=== PATIENT | male | born 1945 | race Hispanic/Latino ===

== ENCOUNTER 2019-01-14 02:05 | Emergency (ER) | payer MEDICARE ==
[2019-01-14] MEDS ORDERED: TETANUS/DIPHTHERIA TOXOID [ADULT] 0.5 ML VIAL IM ONE (02:33)
== END 2019-01-14 03:39 | disposition home or self-care (01) ==
LOC: EDH 02:05
DX: S61.251A Open bite of left index finger without damage to nail, initial encounter (principal); W53.11XA Bitten by rat, initial encounter; Y93.89 Activity, other specified; Y92.89 Other specified places as the place of occurrence of the external cause; Y99.8 Other external cause status
CPT/HCPCS: 73140; 90471; 90714

== ENCOUNTER 2020-03-14 10:30 | Observation (INO) | payer MEDICARE ==
[~2020-03-14] VITALS: Ht 165.1 cm; Wt 85.3 kg
[2020-03-14] MEDS ORDERED: ONDANSETRON HCL 4 MG/2 ML VIAL IVP PRN (15:30)
[2020-03-14] MEDS ORDERED: POTASSIUM CHLORIDE 20 MEQ ERTAB PO PRN (15:30)
[2020-03-14] MEDS ORDERED: LIDOCAINE HCL-MPF 1% 2ML VIAL IV PRN (15:30)
[2020-03-14] MEDS ORDERED: POTASSIUM CHLORIDE 10% ELIXIR 20 MEQ/15 ML UDCUP PO PRN (15:30)
[2020-03-14] MEDS ORDERED: ACETAMINOPHEN 325 MG TAB PO PRN ×2 (15:30)
[2020-03-14] MEDS ORDERED: POTASSIUM CHLORIDE 20MEQ/100ML 100 ML IV PRN (15:30)
[2020-03-14] MEDS ORDERED: CEFTRIAXONE SODIUM 1 GM IVP SCH (15:30)
[2020-03-14] MEDS ORDERED: AZITHROMYCIN 500MG+NS 250ML 250 ML IV SCH (15:30)
[2020-03-14] MEDS ORDERED: AZITHROMYCIN 500MG+NS 250ML 250 ML IV ONE ×2 (19:40→20:15)
[2020-03-14] MEDS ORDERED: CEFTRIAXONE SODIUM 1 GM ONE ×2 (19:40→22:21)
[2020-03-14] MEDS ORDERED: FAMOTIDINE 20MG TAB 20 MG TAB ONE (20:03)
[2020-03-14] MEDS ORDERED: METHYLPREDNISOLONE SOD SUCC 40MG/ML 1ML ONE ×2 (20:03→22:21)
[2020-03-14] MEDS ORDERED: METHYLPREDNISOLONE SOD SUCC 40MG/ML 1ML IVP SCH (21:00)
[2020-03-14] MEDS ORDERED: FAMOTIDINE 20MG TAB 20 MG TAB PO SCH (21:00)
[2020-03-14] MEDS ORDERED: POTASSIUM CHLORIDE 20 MEQ ERTAB PO ONE (21:12)
[2020-03-15] MEDS ORDERED: ENOXAPARIN SODIUM 30 MG/0.3 ML SQ SCH (09:00)
[2020-03-15] MEDS ORDERED: METHYLPREDNISOLONE SOD SUCC 40MG/ML 1ML ONE (09:03)
[2020-03-15] MEDS ORDERED: ENOXAPARIN SODIUM 30 MG/0.3 ML SQ ONE (09:04)
[2020-03-15] MEDS ORDERED: FAMOTIDINE/PF 20 MG/2 ML VIAL IV ONE (10:05)
[2020-03-15] MEDS ORDERED: INSULIN HUMULIN R 100 UNIT/ML 3ML ONE ×2 (10:06→13:14)
[2020-03-15 11:10] VITALS: PULSE 95; PULSE 96; RESP 16; RESP 18
== END 2020-03-15 16:15 | disposition home or self-care (01) ==
LOC: EDH 10:30 → EDHIP 15:15
PROVIDERS: ADMIT Hospitalist; ATTEND Hospitalist
DX: U07.1 COVID-19 (principal); J18.9 Pneumonia, unspecified organism; R09.02 Hypoxemia; R06.00 Dyspnea, unspecified; E78.5 Hyperlipidemia, unspecified; I10 Essential (primary) hypertension; E11.9 Type 2 diabetes mellitus without complications; I25.10 Atherosclerotic heart disease of native coronary artery without angina pectoris
CPT/HCPCS: 36415 ×2; 71045; 80048; 80053; 82550; 82728 ×2; 82948; 83605; 83615 ×2; 84484; 85025 ×2; 85378 ×3; 85610; 85730; 86140 ×2; 87040 ×2; 93005; 94760 ×2; 99285; G0378 ×10; J0456 ×2; J0696 ×2; J1650; J1815 ×2; J2920 ×3; J3490